=== PATIENT | male | born 1985 | race American Indian/Alaskan Native ===

== ENCOUNTER 2017-08-28 17:32 | Emergency (ER) | payer OTHER ==
[2017-08-28 18:24] VITALS: RESP 16; TEMP 98.6
--- NOTE | 2017-08-28 19:27 | C.PDOC ---
History Of Present Illness 32 year old male complains of nasal congestion, cough, generalized body aches and low back pain since yesterday. He has not taken medications. Reports sick contacts at work. Time Seen by Provider: 08/28/17 19:04 Chief Complaint (Nursing): Back Pain History Per: Patient History/Exam Limitations: no limitations Onset/Duration Of Symptoms: Days Current Symptoms Are (Timing): Still Present Location Of Pain: Throat, Diffuse Myalgias Sick Contacts (Context): Individual(s) At Work Associated Symptoms: Fever, Cough, Myalgias Past Medical History Reviewed: Historical Data, Nursing Documentation, Vital Signs Vital Signs: Last Vital Signs Temp 98.6 F 08/28/17 18:24 Pulse 78 08/28/17 19:49 Resp 16 08/28/17 19:49 BP 115/84 08/28/17 19:49 Pulse Ox 98 08/28/17 19:49 - Medical History PMH: No Chronic Diseases Surgical History: No Surg Hx Family History: States: Unknown Family Hx - Social History Hx Alcohol Use: No Hx Substance Use: No - Immunization History Hx Tetanus Toxoid Vaccination: No Hx Influenza Vaccination: No Hx Pneumococcal Vaccination: No Review Of Systems Constitutional: Positive for: Malaise. Negative for: Fever, Chills Eyes: Negative for: Vision Change, Redness ENT: Positive for: Nose Congestion. Negative for: Nose Discharge, Throat Pain Cardiovascular: Negative for: Chest Pain, Palpitations Respiratory: Positive for: Cough. Negative for: Shortness of Breath, Sputum Gastrointestinal: Negative for: Vomiting, Abdominal Pain, Diarrhea Musculoskeletal: Positive for: Back Pain, Other (diffuse myalgias) Skin: Negative for: Rash Neurological: Negative for: Headache Physical Exam - Physical Exam Appears: Non-toxic, No Acute Distress Skin: Warm, Dry, No Rash Head: Atraumatic, Normacephalic Eye(s): bilateral: Normal Inspection, PERRL, EOMI Ear(s): Bilateral: Normal (no erythema) Nose: Normal, No Flaring, No Discharge Oral Mucosa: Moist Neck: Normal ROM Chest: Symmetrical Cardiovascular: Rhythm Regular, No Murmur Respiratory: Normal Breath Sounds, No Rales, No Rhonchi, No Wheezing Back: Normal Inspection, No Vertebral Tenderness, No Paraspinal Tenderness Extremity: Bilateral: Atraumatic, Normal Color And Temperature, Normal ROM Neurological/Psych: Oriented x3, Normal Speech ED Course And Treatment O2 Sat by Pulse Oximetry: 100 Medical Decision Making Medical Decision Making: Patient with multiple symptoms onset yesterday, flu-like and appears nontoxic in no distress. Will treat for Flu and encourage rest and fluids. Disposition Counseled Patient/Family Regarding: Diagnosis, Need For Followup, Rx Given - Disposition Referrals: [facility] [Outside] [facility] [Outside] Disposition: HOME/ ROUTINE Disposition Time: 19:26 Condition: GOOD Additional Instructions: . Take Tylenol or Motrin alternating every 4-6 hours for Fever 100.4F or higher. Rest and drink plenty of fluids. May use cool mist humidifier or vaporizer in room. Try taking over the counter antihistamine (Claritin, Roxie , Zyrtec), Decongestant or Cough medicine (Mucinex) as needed every 6-8 hours. Follow up with your primary medical doctor or clinic in 1 week for further evaluation. Prescriptions: Ibuprofen [Motrin] 600 mg PO Q8 #30 tab Oseltamivir Phosphate [Tamiflu] 75 mg PO BID #10 capsule Promethazine DM [Phenergan DM Syrup] 10 ml PO Q8 PRN #300 ml PRN Reason: Cough Instructions: Influenza (ED) Forms: [facility] ([place]oc[place]) - POA Present On Arrival: None - Clinical Impression Clinical Impression: Influenza-like illness
[2017-08-28 19:50] VITALS: BP 115/84; PULSE 78
[2017-08-28 20:14] VITALS: O2SAT 100
== END 2017-08-28 19:49 | disposition home or self-care (01) ==
LOC: C.ER 17:32
DX: J11.1 Influenza due to unidentified influenza virus with other respiratory manifestations (principal)